=== PATIENT | female | born 1980 | race African-American/Black ===

== ENCOUNTER 2018-02-04 01:35 | Emergency (ER) | payer MEDICAID ==
[~2018-02-04] VITALS: Ht 175.3 cm; Wt 52.0 kg
[~2018-02-04 01:35] MED LIST: CLIN-5 PO; HYDR-569 PO
[2018-02-04] MEDS ORDERED: diphenhydrAMINE 50 mg/ml inj IV ONE (01:55)
[2018-02-04] MEDS ORDERED: ketorolac trometh. 30mg/ml inj. IV ONE (01:55)
[2018-02-04] MEDS ORDERED: normal saline 1000ML IV soln IVB ONE (01:55)
[2018-02-04] MEDS ORDERED: metoclopramide 5 mg/ml inj IV ONE (01:55)
[2018-02-04] MEDS ORDERED: LORazepam 2 mg/ml vial IV ONE (01:55)
[2018-02-04] MEDS ORDERED: cloNIDine 0.1 mg tablet PO ONE (02:05)
[2018-02-04 03:48] VITALS: BP 122/80
== END 2018-02-04 03:56 | disposition home or self-care (01) ==
LOC: ER 01:36
DX: R51 Headache (principal); R11.0 Nausea; I10 Essential (primary) hypertension; G89.29 Other chronic pain; F15.90 Other stimulant use, unspecified, uncomplicated; Z88.2 Allergy status to sulfonamides; Z88.0 Allergy status to penicillin; Z88.8 Allergy status to other drugs, medicaments and biological substances; Z79.899 Other long term (current) drug therapy
CPT/HCPCS: 96374; 96375; 99284; J1200; J1885; J2060; J2765; J7030

== ENCOUNTER 2018-04-07 21:25 | Emergency (ER) | payer MEDICAID ==
[~2018-04-07] VITALS: Ht 175.3 cm; Wt 67.0 kg
[2018-04-07] MEDS ORDERED: DEXT5TAB26 PO (22:18)
[2018-04-07] MEDS ORDERED: DIAZ5TAB4 PO (22:18)
[2018-04-07] MEDS ORDERED: LOSA25TA96 PO (22:18)
[2018-04-07] MEDS ORDERED: IBUP-1984 PO (22:18)
[2018-04-07] MEDS ORDERED: morphine 4 MG/ML inj SYRINge IV ONE (22:35)
[2018-04-07] MEDS ORDERED: ondansetron/PF 4mg/2ml inj IV ONE (23:00)
[2018-04-07 23:08] LABS: BASOPHILS % (AUTO) 0.3 % (0-1); EOSINOPHILS # (AUTO) 0.1 X10'3 (0-0.9); EOSINOPHILS % (AUTO) 0.7 % (0-6); HEMATOCRIT 35.7 % (35.0-45.0); HEMOGLOBIN 12.3 g/dl (12.0-16.0); LYMPHOCYTES # (AUTO) 1.6 X10'3 (1.1-4.8); LYMPHOCYTES % (AUTO) 12.3 % (21-51); MEAN CORPUSCULAR HEMOGLOBIN 31.3 PG (27.0-31.0); MEAN CORPUSCULAR HGB CONC 34.5 % (33.0-36.5); MEAN CORPUSCULAR VOLUME 90.7 FL (78-98); MEAN PLATELET VOLUME 7.9 FL (7.4-10.4); MONOCYTES # (AUTO) 0.7 X10'3 (0-0.9); MONOCYTES % (AUTO) 5.3 % (2-12); NEUTROPHILS # (AUTO) 10.3 X10'3 (1.8-7.7); NEUTROPHILS % (AUTO) 81.4 % (42-75); PLATELET COUNT 346 X10'3 (140-440); RED BLOOD COUNT 3.93 X10'6 (4.20-5.60); RED CELL DISTRIBUTION WIDTH 15.4 % (11.5-14.5); WHITE BLOOD COUNT 12.7 X10'3 (4.5-11.0)
[2018-04-07 23:20] LABS: HCG SERUM QL NEGATIVE
[2018-04-07 23:25] LABS: ALANINE AMINOTRANSFERASE 19 U/L (12-78); ALBUMIN 3.7 G/DL (3.4-5.0); ALBUMIN/GLOBULIN RATIO 0.8 (1.1-1.5); ALKALINE PHOSPHATASE 54 IU/L (46-116); ANION GAP 9 (8-16); ASPARTATE AMINO TRANSFERASE 19 U/L (10-37); BILIRUBIN,TOTAL 0.2 MG/DL (0.1-1.0); BLOOD UREA NITROGEN 12 MG/DL (7-18); BUN/CREATININE RATIO 14.6 (6.6-38.0); CALCIUM 9.3 MG/DL (8.5-10.1); CHLORIDE 102 MMOL/L (99-107); CREATININE 0.82 MG/DL (0.40-0.90); GLUCOSE 107 MG/DL (70-104); POTASSIUM 3.6 MMOL/L (3.5-5.1); SODIUM 139 MMOL/L (135-145); TOTAL CARBON DIOXIDE 28.3 MMOL/L (24-32); TOTAL PROTEIN 8.2 G/DL (6.4-8.2); eGFR > 90 ML/MIN
[2018-04-08] MEDS ORDERED: morphine 2 MG/ML inj. syringe IV ONE (00:15)
[2018-04-08] MEDS ORDERED: LORazepam 2 mg/ml vial IV ONE (02:00)
[2018-04-08 02:42] VITALS: BP 127/88
[2018-04-08] MEDS ORDERED: HYDROmorphone 1 mg/ml syringe IV ONE (02:55)
== END 2018-04-08 03:57 | disposition home or self-care (01) ==
LOC: ER 21:26
DX: M54.9 Dorsalgia, unspecified (principal); G89.29 Other chronic pain; I10 Essential (primary) hypertension; Z88.2 Allergy status to sulfonamides; Z88.0 Allergy status to penicillin; Z88.8 Allergy status to other drugs, medicaments and biological substances
CPT/HCPCS: 36415; 72125; 72128; 72131; 80053; 84703; 85025; 96374; 96375; 96376; 99285; J1170; J2060; J2270; J2405; J7030